=== PATIENT | male | born 1950 | race Caucasian/White ===

== ENCOUNTER → 2018-06-06 | Outpatient (CLI) | payer MEDICARE, OTHER ==
[2018-06-06 11:44] LABS: Appearance,Urine Clear (Clear); Bilirubin,Urine Negative (Negative); Blood,Urine Negative (Negative); Color,Urine Yellow; Glucose,Urine (UA) Negative (Negative); Ketones,Urine Negative (Negative); Leukocyte Esterase,Urine Negative (Negative); Nitrite,Urine Negative (Negative); PH, Urine 6.5 (5.0-8.0); Protein,Urine Negative (Negative); Specific Gravity,Urine 1.012 (1.001-1.035); Urobilinogen,Urine <2.0 mg/dL (<2.0)
[2018-06-06 11:49] LABS: INR 1.1 (<1.2); Partial Thromboplastin Time 23.6 sec (22.0-30.0); Prothrombin Time 10.7 sec (9.0-12.0)
[2018-06-06 11:51] LABS: Basophils # (A) 0.1 k/uL (0-0.2); Basophils % (A) 1 %; Eosinophils # (A) 0.3 k/uL (0-0.7); Eosinophils % (A) 3 %; HCT 46.5 % (39.0-53.0); Lymphocytes # (A) 1.7 k/uL (1.0-4.8); Lymphocytes % (A) 20 %; MCH 32.4 pg (25.0-35.0); MCHC 34.4 g/dL (31.0-37.0); MCV 94.1 fL (80.0-100.0); Monocytes # (A) 0.5 k/uL (0-1.0); Monocytes % (A) 6 %; Neutrophils # (A) 5.9 k/uL (1.3-7.7); Neutrophils % (A) 69 %; Platelet Count 289 k/uL (150-450); RBC 4.95 m/uL (4.30-5.90); RDW 12.9 % (11.5-15.5); WBC 8.5 k/uL (3.8-10.6)
[2018-06-06 11:58] LABS: Calcium 10.1 mg/dL (8.4-10.2); Potassium 4.5 mmol/L (3.5-5.1)
--- NOTE | 2018-06-06 15:21 | XR ---
EXAMINATION TYPE: XR chest 2V DATE OF EXAM: 06/06/2018 COMPARISON: NONE HISTORY: Preop TECHNIQUE: Frontal and lateral views of the chest are obtained. FINDINGS: There is no focal air space opacity, pleural effusion, or pneumothorax seen. The cardiac silhouette size is within normal limits. The osseous structures are intact. IMPRESSION: No acute cardiopulmonary process.
== END ==
LOC: LABPAT 10:35
PROVIDERS: ATTEND Orthopaedic Surgery Orthopaedic Surgery of the Spine
DX: Z01.818 Encounter for other preprocedural examination (principal); M62.81 Muscle weakness (generalized); M99.79 Connective tissue and disc stenosis of intervertebral foramina of abdomen and other regions; Z01.812 Encounter for preprocedural laboratory examination
CPT/HCPCS: 36415; 71046; 80048; 81003; 85025; 85610; 85730

== ENCOUNTER 2018-06-13 11:14 | Day surgery (SDC) | payer MEDICARE, OTHER ==
[~2018-06-13 11:14] MED LIST: BACITRACIN 50,000 UNIT, POLYMYXIN B 500,000 UNIT in SODIUM CHLORIDE 0.9% IRRIGATIO 1,00... IRRIGATION ONE; DEXAMETHASONE SOD PHOSPHATE 10 MG/ML 1 ML VIAL IV ONE; HYDROmorphone 0.5 MG/0.5 ML SYRINGE IVP PRN; LIDOCAINE 1% 20 ML VIAL (10MG/ML) FOR IV START INTRADERMA PRN; MIDAZOLAM 2 MG/2 ML VIAL IV PRN; ONDANSETRON 4 MG/2 ML VIAL IVP ONE; ceFAZolin IN SWFI 2 GM/20 ML SYRINGE IVP ONE; fentaNYL (PF) 50 MCG/ML 2 ML AMP IV PRN
[2018-06-13] MEDS: LACTATED RINGERS 1,000 ML IV SCH ×2 (12:00→20:51)
[2018-06-13] MEDS ORDERED: ePHEDrine SULFATE/0.9% NACL/PF 50 MG/5 ML SYRINGE IV ONE (13:06)
[2018-06-13] MEDS ORDERED: GLYCOPYRROLATE 0.2 MG/ML 2 ML VIAL ONE (13:06)
[2018-06-13] MEDS ORDERED: fentaNYL (PF) 50 MCG/ML 2 ML AMP ONE (13:06)
[2018-06-13] MEDS ORDERED: MIDAZOLAM 2 MG/2 ML VIAL ONE (13:06)
[2018-06-13] MEDS ORDERED: LIDOCAINE 1% INJ 10MG/ML (20 ML MDV) ONE (13:06)
[2018-06-13] MEDS ORDERED: PROPOFOL 10 MG/ML 20 ML VIAL IV ONE (13:06)
[2018-06-13] MEDS ORDERED: ROCURONIUM BROMIDE 10 MG/ML 10 ML VIAL IV ONE (13:06)
[2018-06-13] MEDS ORDERED: SUCCINYLCHOLINE CHLORIDE 100 MG/5 ML SYR IV ONE (13:06)
[2018-06-13] MEDS ORDERED: NEOSTIGMINE 1 MG/ML 10 ML VIAL ONE (13:06)
[2018-06-13] MEDS ORDERED: THROMBIN (BOVINE) 5,000 UNIT VIAL TOPICAL ONE (13:18)
[2018-06-13] MEDS ORDERED: GELATIN SPONGE,ABSORB (LARGE) 1 EACH SPONGE TOPICAL ONE (13:18)
[2018-06-13] MEDS ORDERED: LIDOCAINE 0.5%-EPI 1:200,000 50 ML VIAL SQ ONE (13:18)
[2018-06-13] MEDS ORDERED: methylPREDNISolone ACETATE 40 MG/ML 1 ML VIAL MISCELLANE ONE (13:43)
--- NOTE | 2018-06-13 13:58 | XR ---
Fluoroscopy History: Needle placement 2 sec fluoro . Single paper image demonstrates localization at the L4-5 level.
[2018-06-13] MEDS ORDERED: HYDROmorphone 1 MG/ML 1 ML SYRINGE IVP PRN ×3 (15:05→15:06)
[2018-06-13] MEDS ORDERED: MAGNESIUM HYDROXIDE 2,400 MG/10 ML CUP PO PRN (15:05)
[2018-06-13] MEDS ORDERED: ONDANSETRON 4 MG/2 ML VIAL IVP PRN (15:06)
[2018-06-13] MEDS ORDERED: IBUPROFEN 600 MG TAB PO PRN (15:06)
--- NOTE | 2018-06-13 15:16 | P.OP ---
Date of Procedure: 06/13/18 Preoperative Diagnosis: Far lateral disc herniation L4 5 on the right Right lower extremity radiculopathy over L4 distribution Right lower extremity weakness Degenerative disc disease Postoperative Diagnosis: Same Anesthesia: GETA Pathology: none sent Condition: stable Disposition: PACU Description of Procedure: BRIEF OPERATIVE NOTE Preoperative Diagnosis: Far lateral disc herniation L4 5, right lower extremity radiculopathy right lower extremity weakness, degenerative disc disease Postoperative Diagnosis: Same Procedure: Laminectomy and partial facetectomy and decompression L4 5 Discectomy for decompression L4 5 Surgeon: Dr. Squires Shot Examiner: Trenton Ragsdale is present throughout the entire the case persistence during positioning, dissection, exposure, visualization, and all crucial elements of the case as well as closure. Anesthesia: General anesthesia Estimated blood loss: Approximately 150 mL Complications: None apparent Components implanted: None Disposition: To recovery room in good stable condition. OPERATIVE INDICATIONS The patient has been having issues in their lower back and lower extremities. The patient has been through conservative treatment. He is found have a large far lateral disc herniation at L4 5 which correlated well with his right lower extremity radiculopathy or L4 distribution. Patient is having evidence of weakness and persistent radiculopathy despite initial pain management therapy and conservative care. We discussed various treatment options including surgery , and the patient wishes to proceed with surgery We discussed the risk, patient' s alternatives and benefits of surgery including but not limited to, risk of bleeding risk of infection, risk of need for further surgery, risk of decreased , loss of motion, loss of function, nerve damage, paralysis, heart attack, blindness and . OPERATIVE SUMMARY After discussing all the risks, patient alternatives and benefits at length, the patient elected to proceed with surgical intervention, signed informed consent, and presented for their procedure. The patient was seen and examined in the preoperative holding area and the surgical site was marked. The patient was given antibiotics and brought to the operating room. The patient was sedated and intubated by anesthesia in standard fashion. The patient was positioned on to the operating room table in a prone position on the appropriate frame which was well-padded and well molded. We were careful to pad any bony prominences and pressure points. We were careful to maintain the patient's cervical spine and good neutral alignment and position throughout. The patient was prepped and draped in a normal standard fashion. An appropriate timeout and keystone protocol performed. We were able to proceed with the surgery. Fluoroscopy was utilized to establish the appropriate level. The local wound area was infiltrated with local anesthetic. An incision was made at the right paracentral space approximately 2 cm longitudinally over the appropriate levels at L4 5. Dissection was taken down subcutaneously to the level of the fascia which was split along the fibers of the musculature down to the level of facet joint. Dissection was taken over the lamina and over the facet joints laterally. Intraoperative fluoroscopy was taken which showed a marker at the appropriate level at L4 5. With the appropriate level positively confirmed, we were able to proceed with laminectomy and partial lateral discectomy. The wound was copiously irrigated and suctioned dry as had been done periodically throughout the case. I performed a partial laminectomy and partial facetectomy with a combination of curettes and a high-speed bur and Kerrison rongeurs. A small lateral facetectomy was performed again further access. A partial foraminotomy was also performed. Portions of the ligamentum flavum and the intertransverse ligament were taken down to expose the dura and exiting nerve root. I was able to mobilize the traversing nerve root and gain access to the disc space. Note was made of obvious compression from the disc. Protecting the soft tissue structures, a small annulotomy was established. I was able to perform discectomy and remove any extruded disc fragments and any loose fragments from within the disc itself. There is some disc desiccation noted. I tried to preserve the disc annulus that appeared stable. There were no further extruded fragments noted. There is no evidence of dural tear or leak. Good hemostasis maintained. The wound was copiously irrigated and suctioned dry. Good decompression and discectomy was noted. We were able to proceed with closure. The fascia was closed for a watertight closure. The subcuticular tissue was closed with absorbable suture. The wound was cleaned and dried and dressed with the appropriate dressing. The drapes were broken down. The patient was gently rolled back onto their hospital bed being careful to maintain their cervical spine and good neutral alignment and position. They were woken up by anesthesia, extubated, and brought to the recovery room in good stable condition. The patient will be admitted to the hospital for observation and for appropriate postoperative care, medical management and monitoring. We will continue to follow them closely about the postoperative course.
[2018-06-13] MEDS ORDERED: LACTATED RINGERS 1,000 ML IV ONE (16:48)
[2018-06-13 17:55] VITALS: BMI 25.1
[2018-06-13] MEDS: SODIUM CHLORIDE 0.9% 1,000 ML IV SCH (18:07)
[2018-06-13] MEDS: METOPROLOL TARTRATE 25 MG TAB PO SCH (20:48)
[2018-06-13] MEDS: cloNIDine HCL 0.1 MG TAB PO SCH (20:48)
[2018-06-13] MEDS: HYDROcodone/APAP 5-325MG 1 EACH TAB PO PRN (20:49)
[2018-06-13] MEDS: ceFAZolin IN SWFI 2 GM/20 ML SYRINGE IVP SCH (20:50)
[2018-06-14] MEDS: SODIUM CHLORIDE 0.9% 1,000 ML IV SCH (04:14)
[2018-06-14] MEDS: ceFAZolin IN SWFI 2 GM/20 ML SYRINGE IVP SCH (04:40)
[2018-06-14] MEDS: HYDROcodone/APAP 5-325MG 1 EACH TAB PO PRN ×2 (04:45→09:35)
[2018-06-14 04:52] VITALS: BP 136/81; PULSE 66; RESP 16; TEMP 98.2
[2018-06-14] MEDS: METOPROLOL TARTRATE 25 MG TAB PO SCH (08:38)
[2018-06-14] MEDS: cloNIDine HCL 0.1 MG TAB PO SCH (08:39)
--- NOTE | 2018-06-14 08:50 | P.DS ---
Providers Date of admission: 06/13/2018 Expected date of discharge: 06/14/18 Attending physician: Farzana Squires Primary care physician: Morris Zuñiga - Discharge Diagnosis(es) (1) Lumbar disc herniation with radiculopathy Current Visit: Yes Status: Acute (2) Lumbar degenerative disc disease Current Visit: Yes Status: Acute (3) Hypertension Current Visit: Yes Status: Acute (4) Hyperlipidemia Current Visit: Yes Status: Acute Hospital Course: This is a pleasant 68-year-old male who presented with L4-5 for right lateral disc herniation, right lower extremity radiculopathy over L4 distribution, right lower extremity weakness, and lumbar degenerative disc disease who failed outpatient conservative therapy. He was admitted for an L4-5 right for lateral laminectomy and decompression with discectomy. Postoperatively patient feels he 's had significant improvement of his symptoms. He is not currently experiencing any significant right lower extremity radiculopathy which was present prior to surgical intervention. He has some numbness ongoing and the toes of his right foot. Does not currently complain of significant weakness. He's been eating and voiding without difficulty. He is very happy postoperatively and is ready for discharge home. The patient tolerated the procedure well and did well postoperatively. Condition on day of discharge stable. Patient was cleared preoperatively for surgery by Dr. Zuñiga and Dr. Chamberlain. Patient currently denies any nausea, vomiting, fever, or chills. Patient is eating and voiding freely without difficulty. Patient may shower Tegaderm dressing intact. Patient may remove Tegaderm dressing in 3 days and shower without a dressing at that time. Patient should keep Steri-Strips intact and allow them to fall off naturally. Patient should refrain from driving until at least after their first follow-up appointment in the office. Patient should avoid excessive bending, lifting, and twisting; no lifting greater than 10 pounds. An "Opioid Start Talking" form has been signed by the patient and Dr. Rey Squires. A prescription for [place] 5 mg/325 mg 1-2 tabs every 6 hours as needed for pain dispense #24 has been transcribed to the pharmacy by Dr. Rey Squires. Patient should avoid anti-inflammatories or the next 6 weeks postoperatively. Physical Exam on day of discharge: Patient is awake, alert, and oriented 3 Vital signs stable Good chest excursion with deep inspiration and expiration Abdomen soft nontender No signs or symptoms of DVT; no calf pain Extensor hallucis longus, plantarflexion, and dorsiflexion positive sustained bilateral lower extremities Incision is clean, dry, and intact; no erythema, purulence, or signs of infection Tegaderm dressing and non-stick Telfa intact Procedures: L4-5 right for lateral laminectomy and decompression with discectomy Patient Condition at Discharge: Stable Plan - Discharge Summary New Discharge Prescriptions: New HYDROcodone/APAP 5-325MG [[place] 5-325] 1 - 2 tab PO Q6HR PRN #24 tab PRN Reason: Severe Pain No Action amLODIPine [Norvasc] 10 mg PO DAILY Triamterene-Hctz 37.5-25Mg [Maxzide 37.5-25] 1 tab PO DAILY Metoprolol Tartrate [Lopressor] 25 mg PO BID Candesartan Cilexetil [Atacand] 32 mg PO DAILY Aspirin [Adult Low Dose Aspirin EC] 81 mg PO DAILY cloNIDine HCL [Catapres] 0.1 mg PO BID Omeprazole 20 mg PO DAILY Atorvastatin [Lipitor] 40 mg PO DAILY Discharge Medication List Aspirin [Adult Low Dose Aspirin EC] 81 mg PO DAILY 03/05/16 [History] Atorvastatin [Lipitor] 40 mg PO DAILY 03/05/16 [History] Candesartan Cilexetil [Atacand] 32 mg PO DAILY 03/05/16 [History] Metoprolol Tartrate [Lopressor] 25 mg PO BID 03/05/16 [History] Omeprazole 20 mg PO DAILY 03/05/16 [History] Triamterene-Hctz 37.5-25Mg [Maxzide 37.5-25] 1 tab PO DAILY 03/05/16 [History] amLODIPine [Norvasc] 10 mg PO DAILY 03/05/16 [History] cloNIDine HCL [Catapres] 0.1 mg PO BID 03/05/16 [History] HYDROcodone/APAP 5-325MG [[place] 5-325] 1 - 2 tab PO Q6HR PRN #24 tab 06/13/18 [ Rx] Follow up Appointment(s)/Referral(s): Farzana Squires DO [Doctor of Osteopathic Medicine] - 06/28/18 2:00 pm Patient Instructions/Handouts: *Surgery [facility] - ([place]) Lumbar Surgery Discharge Instructions, Hydrocodone/Acetaminophen (By mouth), Surgical Site Infections (DC ) Activity/Diet/Wound Care/Special Instructions: -Keep site clean. May shower with waterproof Tegaderm intact. -Do not soak in a tub. -After 72 hours is complete, the patient may remove dressing and then may shower with area uncovered. Leave Steri-Strips intact and allow them to fray off on their own. *May ambulate to tolerance. *Avoid heavy or rigorous activity. No heavy lifting *No repetitive bending, twisting or lifting Discharge Disposition: HOME SELF-CARE
[2018-06-14] MEDS ORDERED: ASPIRIN 81 MG PO SCH (09:00)
[2018-06-14] MEDS ORDERED: PANTOPRAZOLE 40 MG TABLET PO SCH (09:00)
[2018-06-14] MEDS ORDERED: ATORVASTATIN 40 MG TAB PO SCH (09:00)
[2018-06-14] MEDS ORDERED: TRIAMTERENE-HCTZ 37.5-25MG 1 EACH TAB PO SCH (09:00)
[2018-06-14] MEDS ORDERED: amLODIPine 10 MG TAB PO SCH (09:00)
[2018-06-14] MEDS ORDERED: SENNOSIDES-DOCUSATE SODIUM 1 EACH TAB PO SCH (09:00)
[2018-06-14] MEDS ORDERED: LOSARTAN 50 MG TAB PO SCH (09:00)
== END 2018-06-14 09:50 | disposition home or self-care (01) ==
LOC: OR 11:14 → 3NMEDONC 14:47 → OR 06-14 09:50
PROVIDERS: ATTEND Orthopaedic Surgery Orthopaedic Surgery of the Spine
DX: M51.16 Intervertebral disc disorders with radiculopathy, lumbar region (principal); M51.17 Intervertebral disc disorders with radiculopathy, lumbosacral region; M48.062 Spinal stenosis, lumbar region with neurogenic claudication; I10 Essential (primary) hypertension; E78.5 Hyperlipidemia, unspecified; K21.9 Gastro-esophageal reflux disease without esophagitis; Z87.891 Personal history of nicotine dependence; N40.0 Benign prostatic hyperplasia without lower urinary tract symptoms; N52.9 Male erectile dysfunction, unspecified; M19.049 Primary osteoarthritis, unspecified hand; M54.5 Low back pain; Z79.82 Long term (current) use of aspirin; Z79.899 Other long term (current) drug therapy; Z79.891 Long term (current) use of opiate analgesic; Z79.52 Long term (current) use of systemic steroids; Z79.1 Long term (current) use of non-steroidal anti-inflammatories (NSAID)
CPT/HCPCS: 63030; 72020; J2250; J1030; J2710; J2405; J2001; J3010; J0330; J2704; J0690 ×2; 86850; 86900; 86901

== ENCOUNTER 2020-02-11 08:41 | Observation (INO) | payer MEDICARE, OTHER ==
[2020-02-11] MEDS ORDERED: LIDOCAINE VISCOUS 2% 15 ML CUP MUCOUS MEM ONE (09:00)
[2020-02-11] MEDS ORDERED: IBUPROFEN 600 MG TAB PO STA (09:01)
--- NOTE | 2020-02-11 09:03 | ED ---
ENT HPI - General Source: patient, RN notes reviewed Mode of arrival: ambulatory Limitations: no limitations <Paco Frederick - Last Filed: 02/11/20 11:07> <Juan Coto - Last Filed: 02/11/20 11:18> - General Chief complaint: ENT Stated complaint: Sore throat, ear pain Time Seen by Provider: 02/11/20 08:48 - History of Present Illness Initial comments: This a 69-year-old male presents emergency Department chief complaint sore throat, left ear pain. Patient states started yesterday. Patient feels like he has strep throat. Patient states it is painful swallowing but he does not have any difficulty and then the discomfort. No fevers or chills patient states that his throat feels swollen. Patient any headache or dizziness. Patient states he has pain areas to his left ear denies any nasal congestion no seasonal ALLERGY issues. Patient denies chest pain, shortness breath, nausea vomiting. (Paco Frederick) - Related Data Home Medications Medication Instructions Recorded Confirmed Aspirin [Adult Low Dose Aspirin EC] 81 mg PO DAILY 03/05/16 06/13/18 Atorvastatin [Lipitor] 40 mg PO DAILY 03/05/16 06/13/18 Candesartan Cilexetil [Atacand] 32 mg PO DAILY 03/05/16 06/08/18 Metoprolol Tartrate [Lopressor] 25 mg PO BID 03/05/16 06/08/18 Omeprazole 20 mg PO DAILY 03/05/16 06/13/18 Triamterene-Hctz 37.5-25Mg 1 tab PO DAILY 03/05/16 06/13/18 [Maxzide 37.5-25] amLODIPine [Norvasc] 10 mg PO DAILY 03/05/16 06/08/18 cloNIDine HCL [Catapres] 0.1 mg PO BID 03/05/16 06/08/18 Previous Rx's Medication Instructions Recorded HYDROcodone/APAP 5-325MG [[place] 1 - 2 tab PO Q6HR PRN #24 tab 06/13/18 5-325] Allergies Allergy/AdvReac Type Severity Reaction Status Date / Time No Known Allergies Allergy Verified 02/11/20 08:47 Review of Systems ROS Other: All systems not noted in ROS Statement are negative. <Paco Frederick - Last Filed: 02/11/20 11:07> ROS Other: All systems not noted in ROS Statement are negative. <Juan Coto - Last Filed: 02/11/20 11:18> ROS Statement: Those systems with pertinent positive or pertinent negative responses have been documented in the HPI. Past Medical History Past Medical History: GERD/Reflux, Hyperlipidemia, Hypertension Additional Past Medical History / Comment(s): HX ULCER, HX H. PYLORI History of Any Multi-Drug Resistant Organisms: None Reported Past Surgical History: Back Surgery, Orthopedic Surgery Additional Past Surgical History / Comment(s): SEVERAL EGD WITH DILATION FOR DYSPHAGIA, KNEE ARTHORSCOPY, SX ON TENDON/FINGER Additional Past Anesthesia/Blood Transfusion Reaction / Comment(s): DIFFICULT INTUBATION, WAS TOLD TO USE "SLIDE SCOPE" Past Psychological History: No Psychological Hx Reported Smoking Status: Former smoker Past Alcohol Use History: Occasional Past Drug Use History: None Reported - Past Family History Mother Family Medical History: Myocardial Infarction ([place]) Father Family Medical History: Congestive Heart Failure (CHF) <Paco Frederick - Last Filed: 02/11/20 11:07> General Exam Limitations: no limitations General appearance: alert, in no apparent distress Head exam: Present: atraumatic, normocephalic, normal inspection Eye exam: Present: normal appearance, PERRL, EOMI. Absent: scleral icterus, conjunctival injection, periorbital swelling ENT exam: Present: mucous membranes moist, TM's normal bilaterally. Absent: normal oropharynx (Erythema posterior pharynx, mild swelling equal bilaterally swallowing secretions well), normal external ear exam (Mild cerumen noted) Neck exam: Present: normal inspection, tenderness (Left anterior cervical region), full ROM, lymphadenopathy. Absent: meningismus Respiratory exam: Present: normal lung sounds bilaterally. Absent: respiratory distress, wheezes, rales, rhonchi, stridor Cardiovascular Exam: Present: regular rate, normal rhythm, normal heart sounds. Absent: systolic murmur, diastolic murmur, rubs, gallop, clicks Neurological exam: Present: alert, oriented X3, CN II-XII intact Skin exam: Present: warm, dry, intact, normal color. Absent: rash <Paco Frederick - Last Filed: 02/11/20 11:07> Course <Juan Coto - Last Filed: 02/11/20 11:18> Vital Signs 06/21/20 08:45 Temperature 98.9 F Pulse Rate 97 Respiratory 18 Rate Blood Pressure 166/99 O2 Sat by Pulse 95 Oximetry - Reevaluation(s) Reevaluation #1: 02/11/20 11:17 PA supervision: I proceeded evaluate this patient patient presents with compl aints of sore throat and left ear pain. The workup revealed evidence of mild epiglottitis. Patient be admitted Dr. Blanco will be the main physician (Juan Coto) Medical Decision Making - Lab Data Result diagrams: 02/11/20 09:52 02/11/20 09:52 <Paco Frederick - Last Filed: 02/11/20 11:07> - Lab Data Result diagrams: 02/11/20 09:52 02/11/20 09:52 <Juan Coto - Last Filed: 02/11/20 11:18> - Medical Decision Making 69-year-old male present emergency from for sore throat. X-ray and radiologist concern for possible mild hepatitis. Patient is in no signs of distress. Patient was placed on Rocephin, Decadron. Patient will be admitted for observation and further management at this point. (Paco Frederick) - Lab Data Lab Results 02/11/20 02/11/20 02/11/20 Range/Units 09:10 09:52 09:52 WBC 19.9 H (3.8-10.6) k/uL RBC 4.92 (4.30-5.90) m/uL Hgb 15.5 (13.0-17.5) gm/dL Hct 46.3 (39.0-53.0) % MCV 94.3 (80.0-100.0) fL MCH 31.5 (25.0-35.0) pg MCHC 33.4 (31.0-37.0) g/dL RDW 12.3 (11.5-15.5) % Plt Count 249 (150-450) k/uL Neutrophils % 91 % Lymphocytes % 3 % Monocytes % 4 % Eosinophils % 1 % Basophils % 0 % Neutrophils # 18.1 H (1.3-7.7) k/uL Lymphocytes # 0.6 L (1.0-4.8) k/uL Monocytes # 0.8 (0-1.0) k/uL Eosinophils # 0.2 (0-0.7) k/uL Basophils # 0.0 (0-0.2) k/uL Sodium 135 L (137-145) mmol/L Potassium 3.9 (3.5-5.1) mmol/L Chloride 101 (98-107) mmol/L Carbon Dioxide 24 (22-30) mmol/L Anion Gap 10 mmol/L BUN 11 (9-20) mg/dL Creatinine 0.94 (0.66-1.25) mg/dL Est GFR (CKD-EPI)AfAm >90 (>60 ml/min/1.73 sqM) Est GFR (CKD-EPI)NonAf 83 (>60 ml/min/1.73 sqM) Glucose 149 H (74-99) mg/dL Plasma Lactic Acid Tate (0.7-2.0) mmol/L Calcium 9.8 (8.4-10.2) mg/dL Total Bilirubin 1.0 (0.2-1.3) mg/dL AST 21 (17-59) U/L ALT 21 (4-49) U/L Alkaline Phosphatase 124 (38-126) U/L Total Protein 7.3 (6.3-8.2) g/dL Albumin 4.3 (3.5-5.0) g/dL Group A Strep Rapid Negative (Negative) 02/11/20 Range/Units 09:52 WBC (3.8-10.6) k/uL RBC (4.30-5.90) m/uL Hgb (13.0-17.5) gm/dL Hct (39.0-53.0) % MCV (80.0-100.0) fL MCH (25.0-35.0) pg MCHC (31.0-37.0) g/dL RDW (11.5-15.5) % Plt Count (150-450) k/uL Neutrophils % % Lymphocytes % % Monocytes % % Eosinophils % % Basophils % % Neutrophils # (1.3-7.7) k/uL Lymphocytes # (1.0-4.8) k/uL Monocytes # (0-1.0) k/uL Eosinophils # (0-0.7) k/uL Basophils # (0-0.2) k/uL Sodium (137-145) mmol/L Potassium (3.5-5.1) mmol/L Chloride (98-107) mmol/L Carbon Dioxide (22-30) mmol/L Anion Gap mmol/L BUN (9-20) mg/dL Creatinine (0.66-1.25) mg/dL Est GFR (CKD-EPI)AfAm (>60 ml/min/1.73 sqM) Est GFR (CKD-EPI)NonAf (>60 ml/min/1.73 sqM) Glucose (74-99) mg/dL Plasma Lactic Acid Tate 1.5 (0.7-2.0) mmol/L Calcium (8.4-10.2) mg/dL Total Bilirubin (0.2-1.3) mg/dL AST (17-59) U/L ALT (4-49) U/L Alkaline Phosphatase (38-126) U/L Total Protein (6.3-8.2) g/dL Albumin (3.5-5.0) g/dL Group A Strep Rapid (Negative) Disposition <Paco Frederick - Last Filed: 02/11/20 11:07> <Juan Coto - Last Filed: 02/11/20 11:18> Clinical Impression: Epiglottitis Disposition: ADMITTED IP TO THIS HOSP Condition: Fair Referrals: Morris Zuñiga MD [Primary Care Provider] - 1-2 days
[2020-02-11] MEDS ORDERED: DEXAMETHASONE SOD PHOSPHATE 10 MG/ML 1 ML VIAL IV STA (09:25)
--- NOTE | 2020-02-11 09:26 | XR ---
EXAMINATION TYPE: XR soft tissue neck , 2 VIEWS DATE OF EXAM ORDERED: 02/11/2020 HISTORY: Dysphagia. COMPARISON: None. FINDINGS: The epiglottis is mildly swollen. The remainder of the airway is unremarkable. IMPRESSION: MILD SWELLING IN THE EPIGLOTTIS. THIS REPORT WAS PHONED TO DAVID ABEL IN THE ER AT THE TIME OF REPORTING.
[2020-02-11 10:15] LABS: Basophils % (A) 0 %; Eosinophils # (A) 0.2 k/uL (0-0.7); Eosinophils % (A) 1 %; HCT 46.3 % (39.0-53.0); HGB 15.5 gm/dL (13.0-17.5); Lymphocytes # (A) 0.6 k/uL (1.0-4.8); Lymphocytes % (A) 3 %; MCH 31.5 pg (25.0-35.0); MCHC 33.4 g/dL (31.0-37.0); MCV 94.3 fL (80.0-100.0); Mean Platelet Volume 7.6; Monocytes # (A) 0.8 k/uL (0-1.0); Monocytes % (A) 4 %; Neutrophils # (A) 18.1 k/uL (1.3-7.7); Neutrophils % (A) 91 %; Platelet Count 249 k/uL (150-450); RBC 4.92 m/uL (4.30-5.90); RDW 12.3 % (11.5-15.5); WBC 19.9 k/uL (3.8-10.6)
[2020-02-11 10:24] LABS: ALT 21 U/L (4-49); AST 21 U/L (17-59); African American GFR (CKD) >90 (>60 ml/min/1.73 sqM); Albumin 4.3 g/dL (3.5-5.0); Alkaline Phosphatase 124 U/L (38-126); Anion Gap 10 mmol/L; Blood Urea Nitrogen 11 mg/dL (9-20); Calcium 9.8 mg/dL (8.4-10.2); Carbon Dioxide 24 mmol/L (22-30); Chloride 101 mmol/L (98-107); Glucose 149 mg/dL (74-99); Non-African American GFR(CKD) 83 (>60 ml/min/1.73 sqM); Potassium 3.9 mmol/L (3.5-5.1); Sodium 135 mmol/L (137-145); Total Protein 7.3 g/dL (6.3-8.2)
[2020-02-11] MEDS ORDERED: NALOXONE 0.4 MG/ML 1 ML VIAL IV PRN ×2 (11:08→12:10)
[2020-02-11] MEDS ORDERED: ONDANSETRON 4 MG/2 ML VIAL IVP PRN (11:08)
[2020-02-11] MEDS ORDERED: KETOROLAC 30 MG/ML 1 ML VIAL IVP PRN ×2 (11:08→11:12)
[2020-02-11] MEDS: SODIUM CHLORIDE 0.9% 1,000 ML IV SCH (11:41)
[2020-02-11] MEDS ORDERED: hydrOXYzine HCL 25 MG TAB PO PRN (12:12)
--- NOTE | 2020-02-11 12:22 | P.HPIM ---
History of Present Illness H&P Date: 02/11/20 Chief Complaint: sore throat 69-year-old male presents to the emergency Department with chief complaint of sore throat, left ear pain, nausea and vomiting. Symptoms started yesterday. Patient has also been having significant dysphagia with painful swallowing. He has not taken anything by mouth since yesterday's lunch. No hearing loss, today ear pain has resolved. No difficulty breathing. No fevers or chills. No headache or dizziness. No sick contacts. In the emergency department computed tomography scan of the neck showed mild swelling in the epiglottis. He was given some steroids and antibiotics and was admitted for further evaluation and management. Review of Systems Complete review of system performed, pertinent positives per HPI, otherwise negative Past Medical History Past Medical History: GERD/Reflux, Hyperlipidemia, Hypertension Additional Past Medical History / Comment(s): HX ULCER, HX H. PYLORI History of Any Multi-Drug Resistant Organisms: None Reported Past Surgical History: Back Surgery, Orthopedic Surgery Additional Past Surgical History / Comment(s): SEVERAL EGD WITH DILATION FOR DYSPHAGIA, KNEE ARTHORSCOPY, SX ON TENDON/FINGER Additional Past Anesthesia/Blood Transfusion Reaction / Comment(s): DIFFICULT INTUBATION, WAS TOLD TO USE "SLIDE SCOPE" Past Psychological History: No Psychological Hx Reported Smoking Status: Former smoker Past Alcohol Use History: Occasional Past Drug Use History: None Reported - Past Family History Mother Family Medical History: Myocardial Infarction ([place]) Father Family Medical History: Congestive Heart Failure (CHF) Medications and Allergies Home Medications Medication Instructions Recorded Confirmed Type Aspirin [Adult Low Dose Aspirin EC] 81 mg PO DAILY 03/05/16 02/11/20 History Atorvastatin [Lipitor] 40 mg PO DAILY 03/05/16 02/11/20 History Candesartan Cilexetil [Atacand] 32 mg PO DAILY 03/05/16 02/11/20 History Metoprolol Tartrate [Lopressor] 25 mg PO BID 03/05/16 02/11/20 History Omeprazole 20 mg PO DAILY 03/05/16 02/11/20 History Triamterene-Hctz 37.5-25Mg 1 tab PO DAILY 03/05/16 02/11/20 History [Maxzide 37.5-25] amLODIPine [Norvasc] 10 mg PO DAILY 07/14/16 06/21/20 History cloNIDine HCL [Catapres] 0.1 mg PO BID 03/05/16 02/11/20 History Clobetasol Propionate [[place] 1 applic TOPICAL BID PRN 02/11/20 02/11/20 History 0.25%] hydrOXYzine HCL [Atarax] 25 mg PO HS PRN 02/11/20 02/11/20 History Allergies Allergy/AdvReac Type Severity Reaction Status Date / Time No Known Allergies Allergy Verified 02/11/20 11:39 Physical Exam Vitals: Vital Signs Temp Pulse Resp BP Pulse Ox 02/11/20 08:45 98.9 F 97 18 166/99 95 Intake and Output 02/10/20 02/11/20 02/11/20 22:59 06:59 14:59 Other: Weight 84.822 kg Constitutional: No acute distress, conversant, pleasant Eyes:Anicteric sclerae, moist conjunctiva, no lid-lag, PERRLA, ENMT: Oropharynx clear, no erythema, exudates Neck: Supple, FROM, no masses, or JVD, No carotid bruits, No thyromegaly Lungs: Clear to auscultation, Clear to percussion, Normal respiratory effort, no accessory muscle use Cardiovascular: Heart regular in rate and rhythm, No murmurs, gallops, or rubs, No peripheral edema Abdominal: Soft, Nontender, no guarding, rebound or rigidity, Normoactive bowel sounds, No hepatomegaly, No splenomegaly, No palpable mass Skin: Normal temperature, tone, texture, turgor, no induration, No subcutaneous nodules, No rash, lesions, No ulcers Extremities: No digital cyanosis, No clubbing, Pedal pulses intact and symmetrical, Radial pulses intact and symmetrical, No calf tenderness Psychiatric: Alert and oriented to person, place and time, appropriate affect, intact judgement Neuro: Muscles Strength 5/5 in all 4 extremities, Sensation to light touch grossly present throughout, Cranial nerves II-XII grossly intact, no focal sensory deficits Results CBC & Chem 7: 02/11/20 09:52 02/11/20 09:52 Labs: Abnormal Lab Results - Last 24 Hours (Table) 02/11/20 02/11/20 Range/Units 09:52 09:52 WBC 19.9 H (3.8-10.6) k/uL Neutrophils # 18.1 H (1.3-7.7) k/uL Lymphocytes # 0.6 L (1.0-4.8) k/uL Sodium 135 L (137-145) mmol/L Glucose 149 H (74-99) mg/dL Assessment and Plan Plan: Epiglottis Start ceftriaxone and decadron IV fluids Toradol and zofran prn Chronic problems Hypertension, essential Hyperlipidemia Stable Resume meds Patient admitted to observation, expected length of stay less than 2 midnights
[2020-02-11] MEDS: ASPIRIN 81 MG PO SCH (13:44)
[2020-02-11] MEDS: ATORVASTATIN 40 MG TAB PO SCH (13:44)
[2020-02-11] MEDS: TRIAMTERENE-HCTZ 37.5-25MG 1 EACH TAB PO SCH (13:44)
[2020-02-11] MEDS: amLODIPine 10 MG TAB PO SCH (13:44)
[2020-02-11] MEDS: DEXAMETHASONE SOD PHOSPHATE 4 MG/ML 1 ML VIAL IV SCH (16:06)
[2020-02-11 19:34] VITALS: RESP 16
[2020-02-11] MEDS: METOPROLOL TARTRATE 25 MG TAB PO SCH (20:56)
[2020-02-11] MEDS: cloNIDine HCL 0.1 MG TAB PO SCH (20:56)
[2020-02-12] MEDS: DEXAMETHASONE SOD PHOSPHATE 4 MG/ML 1 ML VIAL IV SCH ×2 (00:43→10:31)
[2020-02-12] MEDS: SODIUM CHLORIDE 0.9% 1,000 ML IV SCH (00:45)
[2020-02-12 06:06] LABS: Basophils % (A) 0 %; Eosinophils # (A) 0.1 k/uL (0-0.7); Eosinophils % (A) 0 %; HCT 43.2 % (39.0-53.0); HGB 14.3 gm/dL (13.0-17.5); Lymphocytes # (A) 0.7 k/uL (1.0-4.8); Lymphocytes % (A) 5 %; MCH 31.7 pg (25.0-35.0); MCHC 33.1 g/dL (31.0-37.0); MCV 95.8 fL (80.0-100.0); Mean Platelet Volume 7.5; Monocytes # (A) 0.5 k/uL (0-1.0); Monocytes % (A) 3 %; Neutrophils # (A) 14.3 k/uL (1.3-7.7); Neutrophils % (A) 92 %; Platelet Count 215 k/uL (150-450); RBC 4.51 m/uL (4.30-5.90); RDW 12.3 % (11.5-15.5); WBC 15.6 k/uL (3.8-10.6)
[2020-02-12 06:21] LABS: ALT 17 U/L (4-49); AST 18 U/L (17-59); African American GFR (CKD) >90 (>60 ml/min/1.73 sqM); Albumin 3.5 g/dL (3.5-5.0); Alkaline Phosphatase 88 U/L (38-126); Anion Gap 7 mmol/L; Blood Urea Nitrogen 18 mg/dL (9-20); Carbon Dioxide 23 mmol/L (22-30); Chloride 107 mmol/L (98-107); Glucose 148 mg/dL (74-99); Magnesium 1.7 mg/dL (1.6-2.3); Non-African American GFR(CKD) 85 (>60 ml/min/1.73 sqM); Phosphorus 2.9 mg/dL (2.5-4.5); Potassium 4.1 mmol/L (3.5-5.1); Sodium 137 mmol/L (137-145); Total Bilirubin 0.5 mg/dL (0.2-1.3); Total Protein 6.4 g/dL (6.3-8.2)
[2020-02-12] MEDS ORDERED: PANTOPRAZOLE 40 MG TABLET PO SCH (07:30)
[2020-02-12 09:00] VITALS: BP 142/82; PULSE 80; TEMP 96.2
[2020-02-12] MEDS ORDERED: TRIAMTERENE-HCTZ 37.5-25MG 1 EACH TAB PO SCH (09:00)
[2020-02-12] MEDS ORDERED: ASPIRIN 81 MG PO SCH (09:00)
[2020-02-12] MEDS ORDERED: ATORVASTATIN 40 MG TAB PO SCH (09:00)
[2020-02-12] MEDS ORDERED: amLODIPine 10 MG TAB PO SCH (09:00)
[2020-02-12] MEDS: cloNIDine HCL 0.1 MG TAB PO SCH (09:05)
[2020-02-12] MEDS: METOPROLOL TARTRATE 25 MG TAB PO SCH (09:05)
[2020-02-12] MEDS: ATORVASTATIN 40 MG TAB PO SCH (09:05)
[2020-02-12] MEDS: ASPIRIN 81 MG PO SCH (09:05)
[2020-02-12] MEDS: amLODIPine 10 MG TAB PO SCH (09:05)
[2020-02-12] MEDS: TRIAMTERENE-HCTZ 37.5-25MG 1 EACH TAB PO SCH (09:05)
--- NOTE | 2020-02-12 09:20 | P.DS ---
Providers Date of admission: 02/11/20 11:17 Expected date of discharge: 02/12/20 Attending physician: Madhuri Blanco MD Primary care physician: [facility] Course: 69-year-old male presents to the emergency Department with chief complaint of sore throat, left ear pain, nausea and vomiting. Symptoms started yesterday. Patient has also been having significant dysphagia with painful swallowing. He has not taken anything by mouth since yesterday's lunch. No hearing loss, today ear pain has resolved. No difficulty breathing. No fevers or chills. No headache or dizziness. No sick contacts. In the emergency department computed tomography scan of the neck showed mild swelling in the epiglottis. He was given some steroids and antibiotics and was admitted for further evaluation and management. Patient was started on IV decadron and rocephin. Throat exam did not reveal any swelling in the tonsils or the back of the tongue. No exudates or purulent discharge noted. Rapid strept test was negative. Strept cx pending at this time. Clinically patient has been doing well, he has been able to swallow food without difficulties, no sob noted. Today he is feeling much better, will be sent home in a stable condition. Patient Condition at Discharge: Fair Plan - Discharge Summary Discharge Rx Participant: No New Discharge Prescriptions: New methylPREDNISolone Dose Pack [Medrol Dose Pack] 4 mg PO DIRECTED #21 package Cefdinir [Omnicef] 300 mg PO Q12HR 5 Days #10 capsule Continue amLODIPine [Norvasc] 10 mg PO DAILY Triamterene-Hctz 37.5-25Mg [Maxzide 37.5-25] 1 tab PO DAILY Metoprolol Tartrate [Lopressor] 25 mg PO BID Candesartan Cilexetil [Atacand] 32 mg PO DAILY Aspirin [Adult Low Dose Aspirin EC] 81 mg PO DAILY cloNIDine HCL [Catapres] 0.1 mg PO BID Omeprazole 20 mg PO DAILY Atorvastatin [Lipitor] 40 mg PO DAILY hydrOXYzine HCL [Atarax] 25 mg PO HS PRN PRN Reason: Itching Clobetasol Propionate [Impoyz 0.25%] 1 applic TOPICAL BID PRN PRN Reason: inflammation/itching Discharge Medication List Aspirin [Adult Low Dose Aspirin EC] 81 mg PO DAILY 03/05/16 [History] Atorvastatin [Lipitor] 40 mg PO DAILY 03/05/16 [History] Candesartan Cilexetil [Atacand] 32 mg PO DAILY 03/05/16 [History] Metoprolol Tartrate [Lopressor] 25 mg PO BID 03/05/16 [History] Omeprazole 20 mg PO DAILY 03/05/16 [History] Triamterene-Hctz 37.5-25Mg [Maxzide 37.5-25] 1 tab PO DAILY 03/05/16 [History] amLODIPine [Norvasc] 10 mg PO DAILY 03/05/16 [History] cloNIDine HCL [Catapres] 0.1 mg PO BID 03/05/16 [History] Clobetasol Propionate [Impoyz 0.25%] 1 applic TOPICAL BID PRN 02/11/20 [History] hydrOXYzine HCL [Atarax] 25 mg PO HS PRN 02/11/20 [History] Cefdinir [Omnicef] 300 mg PO Q12HR 5 Days #10 capsule 02/12/20 [Rx] methylPREDNISolone Dose Pack [Medrol Dose Pack] 4 mg PO DIRECTED #21 package 02/12/20 [Rx] Follow up Appointment(s)/Referral(s): Morris Zuñiga MD [Primary Care Provider] - 1-2 days
== END 2020-02-12 11:21 | disposition home or self-care (01) ==
LOC: EC 08:41 → 1SOBS 11:17
PROVIDERS: ADMIT Internal Medicine; ATTEND Internal Medicine
DX: J05.10 Acute epiglottitis without obstruction (principal); H92.02 Otalgia, left ear; R11.2 Nausea with vomiting, unspecified; I10 Essential (primary) hypertension; E78.5 Hyperlipidemia, unspecified; K21.9 Gastro-esophageal reflux disease without esophagitis; Z87.11 Personal history of peptic ulcer disease; L29.9 Pruritus, unspecified; L08.9 Local infection of the skin and subcutaneous tissue, unspecified; Z79.899 Other long term (current) drug therapy; Z79.82 Long term (current) use of aspirin; Z87.891 Personal history of nicotine dependence; Z82.49 Family history of ischemic heart disease and other diseases of the circulatory system; Z20.828 Contact with and (suspected) exposure to other viral communicable diseases
CPT/HCPCS: 96376 ×2; 96365; 96375; 99284; 36415; 80053 ×2; 83605; 83735; 84100; 85025 ×2; 87040; 87081; 87430; 70360; G0378 ×2; U0003; J1100 ×3; J0696

== ENCOUNTER → 2020-10-17 | Outpatient (CLI) | payer MEDICARE, OTHER ==
--- NOTE | 2020-10-17 11:43 | XR ---
EXAMINATION TYPE: XR Hip Complete LT DATE OF EXAM: 10/17/2020 CLINICAL HISTORY: pain TECHNIQUE: AP and frogleg views of the left hip are obtained. COMPARISON: None. FINDINGS: There is no acute fracture/dislocation evident. The joint space appears mildly to modera tely narrowed with subchondral cystic change noted.. The overlying soft tissue appears unremarkable. IMPRESSION: 1. There is no acute fracture or dislocation.ICD 10 NO FRACTURE, INITIAL EVALUATION
--- NOTE | 2020-10-17 11:50 | XR ---
EXAMINATION TYPE: XR lumbar spine 2 or 3V DATE OF EXAM: 10/17/2020 CLINICAL HISTORY: pain TECHNIQUE: Three views of the lumbar spine are submitted. COMPARISON: None. FINDINGS: There are 5 lumbar type vertebral bodies identified. The lumbar spine shows satisfactory alignment w ithout evidence of acute fracture or dislocation. Vertebral body heights are within normal limits. Severe degenerative disc space narrowing L5-S1 with mild narrowing at the remaining level. The overly ing soft tissue appears unremarkable. IMPRESSION: No acute fracture or dislocation is seen in the lumbar spine. ICD 10 NO FRACTURE, INITIAL EVALUATION
== END | disposition home or self-care (01) ==
LOC: RADXRMAIN 10:40
PROVIDERS: ATTEND Internal Medicine
DX: M54.42 Lumbago with sciatica, left side (principal)
CPT/HCPCS: 72100; 73502

== ENCOUNTER 2020-10-20 10:38 | Emergency (ER) | payer MEDICARE, OTHER ==
[2020-10-20 10:42] VITALS: BP 154/92; RESP 20; TEMP 98.8
[2020-10-20] MEDS ORDERED: KETOROLAC 15 MG/ML 1 ML VIAL IM STA (11:08)
--- NOTE | 2020-10-20 11:30 | ED ---
General Adult HPI - General Chief complaint: Back Pain/Injury Stated complaint: back/leg/groin pain Time Seen by Provider: 10/20/20 10:48 Source: patient Mode of arrival: ambulatory Limitations: no limitations - History of Present Illness Initial comments: 70-year-old male with a past medical history of GERD, hyperlipidemia, hypertension presents to the emergency room for a chief complaint of back pain. Patient states about 2 weeks ago he started to have low back pains. States that it feels better when he is sitting down. However when he is walking the pain worsens and then radiates down to his left leg. He denies any radiating pain to his right leg. He denies any weakness of his legs but states it is painful to walk. Patient denies any bladder or bowel changes, saddle anesthesia, fevers or chills. Patient does state that he saw his primary care provider who did x-rays and started patient on a muscle relaxer. States this does not seem to be helping.Patient has no other complaints at this time including shortness of breath, chest pain, abdominal pain, nausea or vomiting, headache, or visual changes. - Related Data Home Medications Medication Instructions Recorded Confirmed Aspirin [Adult Low Dose Aspirin EC] 81 mg PO DAILY 03/05/16 02/11/20 Atorvastatin [Lipitor] 40 mg PO DAILY 03/05/16 02/11/20 Candesartan Cilexetil [Atacand] 32 mg PO DAILY 03/05/16 02/11/20 Metoprolol Tartrate [Lopressor] 25 mg PO BID 03/05/16 02/11/20 Omeprazole 20 mg PO DAILY 03/05/16 02/11/20 Triamterene-Hctz 37.5-25Mg 1 tab PO DAILY 03/05/16 02/11/20 [Maxzide 37.5-25] amLODIPine [Norvasc] 10 mg PO DAILY 03/05/16 02/11/20 cloNIDine HCL [Catapres] 0.1 mg PO BID 03/05/16 02/11/20 Clobetasol Propionate [Impoyz 1 applic TOPICAL BID PRN 02/11/20 02/11/20 0.25%] hydrOXYzine HCL [Atarax] 25 mg PO HS PRN 02/11/20 02/11/20 Previous Rx's Medication Instructions Recorded Cefdinir [Omnicef] 300 mg PO Q12HR 5 Days #10 capsule 02/12/20 methylPREDNISolone Dose Pack 4 mg PO DIRECTED #21 package 02/12/20 [Medrol Dose Pack] predniSONE 50 mg PO DAILY #4 tablet 10/20/20 Allergies Allergy/AdvReac Type Severity Reaction Status Date / Time No Known Allergies Allergy Verified 10/20/20 10:41 Review of Systems ROS Statement: Those systems with pertinent positive or pertinent negative responses have been documented in the HPI. ROS Other: All systems not noted in ROS Statement are negative. Past Medical History Past Medical History: GERD/Reflux, Hyperlipidemia, Hypertension Additional Past Medical History / Comment(s): HX ULCER, HX H. PYLORI History of Any Multi-Drug Resistant Organisms: None Reported Past Surgical History: Back Surgery, Orthopedic Surgery Additional Past Surgical History / Comment(s): SEVERAL EGD WITH DILATION FOR DYSPHAGIA 2014, KNEE ARTHORSCOPY, SX ON TENDON/FINGER Additional Past Anesthesia/Blood Transfusion Reaction / Comment(s): DIFFICULT INTUBATION, WAS TOLD TO USE "SLIDE SCOPE" Past Psychological History: No Psychological Hx Reported Smoking Status: Never smoker Past Alcohol Use History: Occasional Past Drug Use History: None Reported - Past Family History Mother Family Medical History: Myocardial Infarction ([place]) Father Family Medical History: Congestive Heart Failure (CHF) General Exam Limitations: no limitations General appearance: alert, in no apparent distress Head exam: Present: atraumatic, normocephalic, normal inspection Eye exam: Present: normal appearance, PERRL, EOMI. Absent: scleral icterus, conjunctival injection, periorbital swelling ENT exam: Present: normal exam, mucous membranes moist Neck exam: Present: normal inspection, full ROM. Absent: tenderness, meningismus, lymphadenopathy Respiratory exam: Present: normal lung sounds bilaterally. Absent: respiratory distress, wheezes, rales, rhonchi, stridor Cardiovascular Exam: Present: regular rate, normal rhythm, normal heart sounds. Absent: systolic murmur, diastolic murmur, rubs, gallop, clicks GI/Abdominal exam: Present: soft, normal bowel sounds. Absent: distended, tenderness, guarding, rebound, rigid Extremities exam: Present: normal capillary refill (cap Refill less than 2 seconds in the reaction is bilaterally. PT pulses strong on Doppler bilaterally), other (snesation intact BLE) Back exam: Absent: CVA tenderness (R), CVA tenderness (L) Course Vital Signs 10/20/20 10/20/20 10:40 12:16 Temperature 98.8 F Pulse Rate 118 H 92 Respiratory 20 Rate Blood Pressure 154/92 O2 Sat by Pulse 99 95 Oximetry Medical Decision Making - Medical Decision Making Vitals are stable. Patient initially tachycardic likely secondary to pain which did improve throughout his stay. No red flag symptoms. Physical exam as documented. Neurovascular status intact in the lower extremities. CT lumbar spine did show multilevel degenerative changes greatest in the mid to lower lumbar spine, recommend MRI. Patient does have several disc bulges. This is likely causing radicular symptoms in the left leg. Patient does feel better after Toradol. We will start patient on steroid and he will take Tylenol or Tylenol 3. He will not drive and is aware this could make him drowsy. He should return for any other worsening symptoms and otherwise follow-up with Dr. Squires who he is familiar. Disposition Clinical Impression: Lumbar disc herniation with radiculopathy, Lumbar degenerative disc disease Disposition: HOME SELF-CARE Condition: Good Instructions (If sedation given, give patient instructions): Acute Low Back Pain (ED) Additional Instructions: Please take Tylenol for pain. If pain is severe take Tylenol [address] or operate machinery while taking this. Take steroid as directed. You were given a dose in the ER so do not start your prescription until tomorrow. Follow up with Dr. Squires. Return to the emergency room for any worsening symptoms such as bladder or bowel changes, numbness or tingling in the groin or buttock, weakness of the legs, or fevers. Prescriptions: predniSONE 50 mg PO DAILY #4 tablet Is patient prescribed a controlled substance at d/c from ED?: No Referrals: Laura Walters NPC [Primary Care Provider] - 1-2 days Farzana Squires DO [Doctor of Osteopathic Medicine] - 1-2 days Time of Disposition: 12:44
--- NOTE | 2020-10-20 12:01 | CT ---
EXAMINATION TYPE: CT lumbar spine wo con DATE OF EXAM: 10/20/2020 11:30 AM COMPARISON: Lumbar spine x-ray 3 days ago. HISTORY: Muscle spasm and cramping, left groin pain for 2 weeks after walking a distance. Back pain. CT DLP: 981.1 mGycm Automated exposure control for dose reduction was used. Unenhanced CT of the lumbar spine was performed. Bone and soft tissue window settings are submitted as well as coronal and sagittal reconstructions. There are 5 lumbar type vertebra redemonstrated. Alignment stable and satisfactory. Severe disc space narrowing with endplate sclerosis and mild to moderate anterior spurring L5-S1 level redemonstrated. Vertebral body heights maintained. No acute fracture seen. Axial images at T12-L1 level within normal limits. Axial images at L1-L2 level show mild broad disc bulge with prominent right lateral L1-L2 spur. Axial images at L2-L3 level mild broad disc bulge minimally effacing the anterior thecal sac. Axial images at L3-L4 level show moderate broad-based posterior disc protrusion effacing anterior the sade sac and mild facet arthropathy bilaterally and axial image 45, there is mild right and moderate l eft-sided inferior neural foraminal narrowing. Axial images at L4-L5 level shows moderate facet degenerative changes bilaterally and ligamentum flav um hypertrophy effacing posterior lateral thecal sac. There is moderate broad-based posterior disc pr otrusion effacing the anterior thecal sac on axial image 58. There is [id number] bilateral neur al foraminal narrowing. Axial images at the L5-S1 level shows moderate facet arthropathy bilaterally. There is left paracentr al disc protrusion effacing anterolateral thecal sac and maximum image 67. There is [id number] left greater than right bilateral neural foraminal narrowing. Moderate to severe calcified plaque of the distal abdominal aorta extends into iliac branch vessels. Cortical thinning both kidneys consistent with product of chronic medical renal disease. IMPRESSION: Multilevel degenerative changes greatest in the mid to lower lumbar spine as detailed ab ove. Patient may benefit with MRI to better evaluate. No acute findings evident.
[2020-10-20 12:18] VITALS: PULSE 92
[2020-10-20] MEDS ORDERED: ACET/COD 300 MG/30 MG STARTER PACK 6 TAB BTL PO STA (12:41)
[2020-10-20] MEDS ORDERED: predniSONE 50 MG TAB PO STA (12:41)
== END 2020-10-20 13:00 | disposition home or self-care (01) ==
LOC: EC 10:38
DX: M47.26 Other spondylosis with radiculopathy, lumbar region (principal); M51.16 Intervertebral disc disorders with radiculopathy, lumbar region; I10 Essential (primary) hypertension; E78.5 Hyperlipidemia, unspecified; K21.9 Gastro-esophageal reflux disease without esophagitis; Z79.899 Other long term (current) drug therapy; Z79.82 Long term (current) use of aspirin
CPT/HCPCS: 72131; 99283; 96372; J1885; J7512

== ENCOUNTER → 2020-11-22 | Outpatient (CLI) | payer MEDICARE, OTHER ==
[2020-11-22 10:23] LABS: Appearance,Urine Clear (Clear); Bilirubin,Urine Negative (Negative); Blood,Urine Negative (Negative); Color,Urine Yellow; Glucose,Urine (UA) Negative (Negative); Ketones,Urine Negative (Negative); Leukocyte Esterase,Urine Negative (Negative); Nitrite,Urine Negative (Negative); Protein,Urine Trace (Negative); Specific Gravity,Urine 1.017 (1.001-1.035)
[2020-11-22 10:24] LABS: Basophils # (A) 0.1 k/uL (0-0.2); Basophils % (A) 1 %; Eosinophils # (A) 0.3 k/uL (0-0.7); Eosinophils % (A) 4 %; HCT 42.9 % (39.0-53.0); HGB 15.1 gm/dL (13.0-17.5); Lymphocytes # (A) 1.5 k/uL (1.0-4.8); Lymphocytes % (A) 19 %; MCH 32.7 pg (25.0-35.0); MCHC 35.1 g/dL (31.0-37.0); MCV 93.1 fL (80.0-100.0); Mean Platelet Volume 6.8; Monocytes # (A) 0.6 k/uL (0-1.0); Monocytes % (A) 7 %; Neutrophils # (A) 5.2 k/uL (1.3-7.7); Neutrophils % (A) 67 %; Platelet Count 289 k/uL (150-450); RBC 4.61 m/uL (4.30-5.90); RDW 12.9 % (11.5-15.5); WBC 7.8 k/uL (3.8-10.6)
[2020-11-22 10:31] LABS: Calcium 9.9 mg/dL (8.4-10.2); Potassium 3.8 mmol/L (3.5-5.1)
[2020-11-22 10:46] LABS: INR 0.9 (<1.2); Partial Thromboplastin Time 22.3 sec (22.0-30.0); Prothrombin Time 10.2 sec (9.0-12.0)
--- NOTE | 2020-11-22 12:43 | XR ---
EXAMINATION TYPE: XR chest 2V DATE OF EXAM: 11/22/2020 COMPARISON: 06/06/2018 HISTORY: 70-year-old male presurgical clearance TECHNIQUE: Frontal and lateral views FINDINGS: The cardiomediastinal silhouette, aorta, and pulmonary vasculature are within normal limits. Lungs an d pleural spaces are clear. IMPRESSION: No acute cardiopulmonary process.
== END | disposition home or self-care (01) ==
LOC: LABPAT 09:11
PROVIDERS: ATTEND Orthopaedic Surgery Orthopaedic Surgery of the Spine
DX: Z01.812 Encounter for preprocedural laboratory examination (principal); M51.27 Other intervertebral disc displacement, lumbosacral region; I45.10 Unspecified right bundle-branch block; R00.1 Bradycardia, unspecified; R94.31 Abnormal electrocardiogram [ECG] [EKG]
CPT/HCPCS: 36415; 71046; 80048; 81003; 85025; 85610; 85730; 87070; 93005

== ENCOUNTER 2020-12-11 13:20 | Day surgery (SDC) | payer MEDICARE, OTHER ==
[2020-12-03 08:39] VITALS: BMI 24.7
[~2020-12-11 13:20] MED LIST changes: -BACITRACIN 50,000 UNIT, POLYMYXIN B 500,000 UNIT in SODIUM CHLORIDE 0.9% IRRIGATIO 1,00... IRRIGATION ONE; -DEXAMETHASONE SOD PHOSPHATE 10 MG/ML 1 ML VIAL IV ONE; +DEXAMETHASONE SOD PHOSPHATE 4 MG/ML 1 ML VIAL IV ONE; -HYDROmorphone 0.5 MG/0.5 ML SYRINGE IVP PRN; +LACTATED RINGERS 1,000 ML IV SCH; +LIDOCAINE 1% (10MG/ML) FOR IV START INTRADERMA PRN; -LIDOCAINE 1% 20 ML VIAL (10MG/ML) FOR IV START INTRADERMA PRN; -MIDAZOLAM 2 MG/2 ML VIAL IV PRN; +ceFAZolin 1,000 MG in SODIUM CHLORIDE 0.9% IRRIGATIO 1,000 ML IRRIGATION PRN; -ceFAZolin IN SWFI 2 GM/20 ML SYRINGE IVP ONE; -fentaNYL (PF) 50 MCG/ML 2 ML AMP IV PRN
[2020-12-11] MEDS ORDERED: ePHEDrine SULFATE/0.9% NACL/PF 50 MG/5 ML SYRINGE IV ONE (14:41)
[2020-12-11] MEDS ORDERED: SUCCINYLCHOLINE CHLORIDE VIAL 200 MG/10 ML VIAL IV ONE (14:41)
[2020-12-11] MEDS ORDERED: PROPOFOL 10 MG/ML 20 ML VIAL IV ONE (14:41)
[2020-12-11] MEDS ORDERED: LIDOCAINE 1% INJ 10MG/ML (20 ML MDV) ONE (14:41)
[2020-12-11] MEDS ORDERED: MIDAZOLAM 2 MG/2 ML VIAL ONE (14:41)
[2020-12-11] MEDS ORDERED: fentaNYL (PF) 50 MCG/ML 2 ML AMP ONE (14:41)
[2020-12-11] MEDS ORDERED: methylPREDNISolone ACETATE 80 MG/ML 1 ML VIAL INJ ONE (15:22)
[2020-12-11] MEDS ORDERED: GELATIN SPONGE,ABSORB (LARGE) 1 EACH SPONGE TOPICAL ONE (15:22)
[2020-12-11] MEDS ORDERED: THROMBIN (BOVINE) 5,000 UNIT VIAL TOPICAL ONE (15:36)
[2020-12-11] MEDS ORDERED: LIDOCAINE 1%-EPI 1:100,000 20 ML VIAL SQ ONE (15:37)
[2020-12-11] MEDS ORDERED: BENZOCAINE/MENTHOL LOZENG 1 EACH LOZENGE MUCOUS MEM PRN (16:11)
[2020-12-11] MEDS ORDERED: HYDROmorphone 0.5 MG/0.5 ML SYRINGE IVP PRN (16:11)
[2020-12-11] MEDS ORDERED: HYDROcodone/APAP 5-325MG 1 EACH TAB PO PRN ×2 (16:11)
[2020-12-11] MEDS ORDERED: HYDROmorphone 1 MG/ML 1 ML SYRINGE IVP PRN (16:11)
[2020-12-11] MEDS ORDERED: Acetaminophen-Codeine 300-30mg TAB PO PRN ×2 (16:12→17:09)
--- NOTE | 2020-12-11 16:12 | FL ---
EXAMINATION TYPE: FL guidance operating room, XR lumbar spine 1V DATE OF EXAM: 12/11/2020 CLINICAL HISTORY: Low back pain. TECHNIQUE: Fluoroscopy. Intraoperative single view lumbar spine. COMPARISON: CT lumbar spine October 20, 2020. FINDINGS: Fluoroscopic guidance was provided during lumbar laminectomy procedure performed by Dr. Henri mcgraw. A total of 1 second of fluoroscopic time was utilized during the procedure and single spot intr aoperative image is acquired. Single intraoperative image acquired shows metallic pointer for localization purposes at the superior L4 level. IMPRESSION: As Above.
[2020-12-11] MEDS ORDERED: SODIUM CHLORIDE 0.9% 1,000 ML IV SCH (16:15)
--- NOTE | 2020-12-11 16:19 | P.OP ---
Date of Procedure: 12/11/20 Preoperative Diagnosis: Herniated nucleus pulposis L3 4, left lower extremity radiculopathy, left lower extremity weakness, degenerative disc disease Postoperative Diagnosis: Same Anesthesia: GETA Pathology: none sent Condition: stable Disposition: PACU Description of Procedure: BRIEF OPERATIVE NOTE Preoperative Diagnosis:Herniated nucleus pulposis L3 4, left lower extremity radiculopathy, left lower extremity weakness, degenerative disc disease Postoperative Diagnosis:Herniated nucleus pulposis L3 4, left lower extremity radiculopathy, left lower extremity weakness, degenerative disc disease Procedure: Laminectomy and decompression L3 4 Discectomy for decompression L3 4 Surgeon: Dr. Squires Fountain Supervisor: Trenton HESS who is present throughout the entire the case persistence during positioning, dissection, exposure, visualization, and all crucial elements of the case as well as closure. Anesthesia: General anesthesia per Dr. Gold Estimated blood loss: Approximately 50 mL Complications: None apparent Components implanted: None Disposition: To recovery room in good stable condition. OPERATIVE INDICATIONS The patient has been having issues in their lower back and lower extremities. He has been having severe left lower extremity radicular symptoms or an L4 distribution. His having worsening for him despite inserted treatment. He is found have a disc herniation evidence of stenosis at L3 4 space which correlate well with his upper extremity symptoms. He had been through treatment in the past 4 L4 5 on the right side and then had gone well for him. The patient has been through conservative treatment. We discussed various treatment options including surgery, and the patient wishes to proceed with surgery We discussed the risk, patient's alternatives and benefits of surgery including but not limited to, risk of bleeding risk of infection, risk of need for further surgery, risk of decreased, loss of motion, loss of function, nerve damage, paralysis, heart attack, blindness and . OPERATIVE SUMMARY After discussing all the risks, patient alternatives and benefits at length, the patient elected to proceed with surgical intervention, signed informed consent, and presented for their procedure. The patient was seen and examined in the preoperative holding area and the surgical site was marked. The patient was given antibiotics and brought to the operating room. The patient was sedated and intubated by anesthesia in standard fashion. The patient was positioned on to the operating room table in a prone position on the appropriate frame which was well-padded and well molded. We were careful to pad any bony prominences and pressure points. We were careful to maintain the patient's cervical spine and good neutral alignment and position throughout. The patient was prepped and draped in a normal standard fashion. An appropriate timeout and keystone protocol performed. We were able to proceed with the surgery. Fluoroscopy was utilized to establish the appropriate level. The local wound area was infiltrated with local anesthetic. An incision was made at the midline longitudinally over the appropriate levels at L4 5. Dissection was taken down subcutaneously to the level of the fascia which was split midline. Dissection was taken over the lamina. Intraoperative fluoroscopy was taken which showed a marker at the appropriate level. With the appropriate level positively confirmed, we were able to proceed with laminectomy. The wound was copiously irrigated and suctioned dry as had been done periodically throughout the case. I performed a laminectomy with a combination of curettes and a high-speed bur and Kerrison rongeurs. A small medial facetectomy was performed again further access. A partial foraminotomy was also performed. Portions of the ligamentum flavum were taken down to expose the dura and traversing nerve root. I was able to mobilize the traversing nerve root and gain access to the disc space. Note was made of obvious compression from the disc. There was a conglomeration of veins right at the space overlying the disc itself which is causing some mass effect on the traversing nerve root. I was able cauterize these with bipolar cauterization. Protecting the soft tissue structures, a small annulotomy was established. I was able to perform discectomy and remove any extruded disc fragments and any loose fragments from within the disc itself. There is some disc desiccation noted. I tried to preserve the disc annulus that appeared stable. There were no further extruded fragments noted. There is no evidence of dural tear or leak. Good hemostasis maintained. The wound was copiously irrigated and suctioned dry. Good decompression and discectomy was noted. We were able to proceed with closure. The fascia was closed for a watertight closure. The subcuticular tissue was closed with absorbable suture. The wound was cleaned and dried and dressed with the appropriate dressing. The drapes were broken down. The patient was gently rolled back onto their hospital bed being careful to maintain their cervical spine and good neutral alignment and position. They were woken up by anesthesia, extubated, and brought to the recovery room in good stable condition. The patient will be admitted to the hospital for observation and for appropriate postoperative care, medical management and monitoring. We will continue to follow them closely about the postoperative course.
[2020-12-11 16:38] VITALS: TEMP 96.3
[2020-12-11 17:09] VITALS: RESP 18
[2020-12-11 17:33] VITALS: BP 130/79; PULSE 70
[2020-12-11] MEDS ORDERED: ATORVASTATIN 40 MG TAB PO SCH (21:00)
[2020-12-11] MEDS ORDERED: METOPROLOL TARTRATE 25 MG TAB PO SCH (21:00)
[2020-12-12] MEDS ORDERED: PANTOPRAZOLE 40 MG TABLET PO SCH (07:30)
[2020-12-12] MEDS ORDERED: SENNOSIDES-DOCUSATE SODIUM 1 EACH TAB PO SCH (09:00)
[2020-12-12] MEDS ORDERED: ASPIRIN 81 MG PO SCH (09:00)
[2020-12-12] MEDS ORDERED: TRIAMTERENE-HCTZ 37.5-25MG 1 EACH TAB PO SCH (09:00)
[2020-12-12] MEDS ORDERED: ESCITALOPRAM 10 MG TAB PO SCH (09:00)
[2020-12-12] MEDS ORDERED: amLODIPine 10 MG TAB PO SCH (09:00)
[2020-12-12] MEDS ORDERED: cloNIDine HCL 0.1 MG TAB PO SCH (09:00)
[2020-12-12] MEDS ORDERED: LOSARTAN 50 MG TAB PO SCH (09:00)
== END 2020-12-11 17:50 | disposition home or self-care (01) ==
LOC: OR 13:20
PROVIDERS: ATTEND Orthopaedic Surgery Orthopaedic Surgery of the Spine
DX: M51.16 Intervertebral disc disorders with radiculopathy, lumbar region (principal); M48.061 Spinal stenosis, lumbar region without neurogenic claudication; M47.816 Spondylosis without myelopathy or radiculopathy, lumbar region; I10 Essential (primary) hypertension; E78.2 Mixed hyperlipidemia; Z20.822 Contact with and (suspected) exposure to COVID-19; Z79.82 Long term (current) use of aspirin; Z79.899 Other long term (current) drug therapy; Z87.891 Personal history of nicotine dependence
CPT/HCPCS: 63030; 87635; 72020; J2250; J0330; J1040; J0690; J2405; J2001; J3010; J2704; 86850; 86900; 86901

== ENCOUNTER → 2021-07-30 | Outpatient (CLI) | payer MEDICARE, OTHER ==
[2021-07-30 16:24] LABS: African American GFR (CKD) 72.3 (60.0-200.0); Albumin 4.1 g/dL (3.8-4.9); Albumin/Globulin Ratio 1.8 (1.60-3.17); Anion Gap 11.5 mmol/L (10.00-18.00); BUN/Creat Ratio 20.94 Ratio (12.00-20.00); Blood Urea Nitrogen 24.5 mg/dL (9.0-27.0); Calcium 9.6 mg/dL (8.7-10.3); Carbon Dioxide 23.5 mmol/L (20.0-27.5); Globulin 2.3 g/dL (1.6-3.3); Non-African American GFR(CKD) 62.4 (60.0-200.0); Potassium 4.7 mmol/L (3.5-5.5); Total Bilirubin 0.5 mg/dL (0.30-1.20); Total Protein 6.4 g/dL (6.2-8.2)
[2021-07-30 18:06] LABS: Eosinophils # (A) 0.72 X 10*3/uL (0.04-0.35); Eosinophils % (A) 7.3 %; HCT 44.4 % (39.6-50.0); HGB 14.6 g/dL (13.0-17.0); Lymphocytes # (A) 1.37 X 10*3/uL (0.90-5.00); Lymphocytes % (A) 13.9 %; MCH 31.7 pg (27.0-32.0); MCHC 32.9 g/dL (32.0-37.0); MCV 96.3 fL (80.0-97.0); Mean Platelet Volume 9.9 fL (9.5-12.2); Monocytes # (A) 1.05 X 10*3/uL (0.20-1.00); Monocytes % (A) 10.7 %; Neutrophils # (A) 6.47 X 10*3/uL (1.80-7.70); Neutrophils % (A) 65.8 %; Platelet Count 314 X 10*3/uL (140-440); RBC 4.61 X 10*6/uL (4.40-5.60); RDW 13.2 % (11.5-14.5); WBC 9.84 X 10*3/uL (4.50-10.00)
== END | disposition home or self-care (01) ==
LOC: LABWHC1 09:37
PROVIDERS: ATTEND Physician Assistant
DX: L25.9 Unspecified contact dermatitis, unspecified cause (principal)
CPT/HCPCS: 36415; 80053; 82955; 85025

== ENCOUNTER → 2021-09-04 | Outpatient (CLI) | payer MEDICARE, OTHER ==
[2021-09-04 19:17] LABS: Basophils # (A) 0.09 X 10*3/uL (0.00-0.10); Basophils % (A) 0.9 %; Eosinophils # (A) 0.02 X 10*3/uL (0.04-0.35); Eosinophils % (A) 0.2 %; HCT 40.7 % (39.6-50.0); HGB 12.9 g/dL (13.0-17.0); Lymphocytes # (A) 1.74 X 10*3/uL (0.90-5.00); Lymphocytes % (A) 17.6 %; MCH 31.2 pg (27.0-32.0); MCHC 31.7 g/dL (32.0-37.0); MCV 98.3 fL (80.0-97.0); Monocytes # (A) 1.13 X 10*3/uL (0.20-1.00); Monocytes % (A) 11.5 %; Neutrophils # (A) 6.82 X 10*3/uL (1.80-7.70); Neutrophils % (A) 69.2 %; Platelet Count 268 X 10*3/uL (140-440); RBC 4.14 X 10*6/uL (4.40-5.60); RDW 13.1 % (11.5-14.5); WBC 9.86 X 10*3/uL (4.50-10.00)
[2021-09-04 19:22] LABS: African American GFR (CKD) 64.8 (60.0-200.0); Albumin 4.1 g/dL (3.8-4.9); Albumin/Globulin Ratio 2.09 (1.60-3.17); Anion Gap 11.8 mmol/L (10.00-18.00); BUN/Creat Ratio 12.03 Ratio (12.00-20.00); Blood Urea Nitrogen 15.4 mg/dL (9.0-27.0); Calcium 9.5 mg/dL (8.7-10.3); Carbon Dioxide 23.5 mmol/L (20.0-27.5); Non-African American GFR(CKD) 55.9 (60.0-200.0); Potassium 4.1 mmol/L (3.5-5.5); Total Bilirubin 0.7 mg/dL (0.30-1.20); Total Protein 6.1 g/dL (6.2-8.2)
== END | disposition home or self-care (01) ==
LOC: LABWHC1 11:59
PROVIDERS: ATTEND Physician Assistant
DX: L25.9 Unspecified contact dermatitis, unspecified cause (principal)
CPT/HCPCS: 36415; 80053; 85025

== ENCOUNTER → 2021-09-26 | Outpatient (CLI) | payer MEDICARE, OTHER ==
[2021-09-26 15:52] LABS: Basophils # (A) 0.11 X 10*3/uL (0.00-0.10); Basophils % (A) 1.4 %; Eosinophils # (A) 1.07 X 10*3/uL (0.04-0.35); Eosinophils % (A) 13.3 %; HCT 40.8 % (39.6-50.0); HGB 13.3 g/dL (13.0-17.0); Lymphocytes % (A) 16.2 %; MCH 32.1 pg (27.0-32.0); MCHC 32.6 g/dL (32.0-37.0); MCV 98.6 fL (80.0-97.0); Mean Platelet Volume 9.7 fL (9.5-12.2); Monocytes # (A) 0.79 X 10*3/uL (0.20-1.00); Monocytes % (A) 9.8 %; Neutrophils # (A) 4.72 X 10*3/uL (1.80-7.70); Neutrophils % (A) 58.8 %; Platelet Count 289 X 10*3/uL (140-440); RBC 4.14 X 10*6/uL (4.40-5.60); RDW 13.2 % (11.5-14.5); WBC 8.03 X 10*3/uL (4.50-10.00)
[2021-09-26 15:58] LABS: African American GFR (CKD) 77.9 (60.0-200.0); Albumin 4.1 g/dL (3.8-4.9); Albumin/Globulin Ratio 1.86 (1.60-3.17); Anion Gap 11.6 mmol/L (10.00-18.00); BUN/Creat Ratio 12.36 Ratio (12.00-20.00); Blood Urea Nitrogen 13.6 mg/dL (9.0-27.0); Calcium 9.6 mg/dL (8.7-10.3); Carbon Dioxide 22.4 mmol/L (20.0-27.5); Globulin 2.2 g/dL (1.6-3.3); Non-African American GFR(CKD) 67.2 (60.0-200.0); Potassium 4.4 mmol/L (3.5-5.5); Total Bilirubin 0.3 mg/dL (0.30-1.20); Total Protein 6.3 g/dL (6.2-8.2)
== END | disposition home or self-care (01) ==
LOC: LABWHC1 10:12
PROVIDERS: ATTEND Physician Assistant
DX: L25.9 Unspecified contact dermatitis, unspecified cause (principal)
CPT/HCPCS: 36415; 80053; 85025

== ENCOUNTER → 2022-06-26 | Outpatient (CLI) | payer MEDICARE, OTHER ==
--- NOTE | 2022-06-26 09:10 | US ---
EXAMINATION TYPE: US duplex aorta DATE OF EXAM: 06/26/2022 COMPARISON: CT CLINICAL HISTORY: Z13.6 AAA. Screening for AAA TECHNIQUE: Multiple sonographic images of the abdominal aorta are obtained. FINDINGS: EXAM MEASUREMENTS: Abdominal Aorta: Proximal: Unable to visualize due to overlying bowel gas Mid: 2.4 x 2.2 cm Distal: 2.1 x 2.1 cm Bifurcation: Unable to visualize bifurcation due to overlying bowel gas PERSONAL INJURY SPECIALIST NOTES: No evidence of AAA, heavily calcified aortic coffman causing shadowing IMPRESSION: No evidence of AAA
== END | disposition home or self-care (01) ==
LOC: RADUSWWP 08:10
PROVIDERS: ATTEND Internal Medicine
DX: Z13.6 Encounter for screening for cardiovascular disorders (principal)
CPT/HCPCS: 93979

== ENCOUNTER → 2023-08-11 | Outpatient (CLI) | payer MEDICARE, OTHER ==
--- NOTE | 2023-08-12 15:31 | US ---
EXAMINATION TYPE: US kidneys/renal and bladder DATE OF EXAM: 08/11/2023 COMPARISON: NONE CLINICAL INDICATION: Male, 73 years old with history of N18.31 CHRONIC KIDNEY DISEASE, STAGE 3A; Abno rmal labs. No pain. EXAM MEASUREMENTS: Right Kidney: 10.2 x 5.6 x 5.4 cm Left Kidney: 10.9 x 5.0 x 5.2 cm Right Kidney: No hydronephrosis. There is a too small to characterize hypoechoic midpole cortical les ion measuring 8 mm. Possible tiny cyst. This is a follow-up. Left Kidney: Prominent cortical lobulations. No hydronephrosis. Bladder: Partially distended, no gross abnormality Bilateral Jets seen IMPRESSION: 1. No hydronephrosis. 2. Indeterminate 8 mm mid pole cortical lesion right kidney is too small for accurate characterizatio n. Possible tiny cyst. Reassess at a 6 month follow-up ultrasound.
== END | disposition home or self-care (01) ==
LOC: RADUSWWP 15:19
PROVIDERS: ATTEND Internal Medicine
DX: N18.31 Chronic kidney disease, stage 3a (principal)
CPT/HCPCS: 76770

== ENCOUNTER → 2023-08-31 | Outpatient (CLI) | payer MEDICARE, OTHER ==
--- NOTE | 2023-09-01 22:50 | MR ---
EXAMINATION TYPE: MR kidney wo/w con DATE OF EXAM: 08/31/2023 8:10 AM CLINICAL INDICATION:Male, 73 years old with history of N28.9 renal lesion; PHH, Renal lesion, Abnorma l US COMPARISON: Ultrasound 08/11/2023 TECHNIQUE: Multiplanar multi-sequence imaging was performed without contrast. Post contrast imaging was performed. Post IV contrast subtraction images were also submitted for review. IV Contrast: 8.5 cc Gadavist FINDINGS: LOWER CHEST: No gross irregularity. ABDOMEN Liver: No evidence for cirrhosis. Mild signal dropout on chemical shift of phase imaging. Gallbladder and Bile ducts: No evidence for ductal dilation, or biliary stricture or evidence of chol edocholithiasis. The gallbladder is within normal limits. Pancreas: No ductal dilation. No evidence for solid mass. Spleen: Normal for size. Adrenal glands: Unremarkable. Kidneys: Intrinsic high T1 signal lesion in the cortex measuring up to 5 mm. Additional high T2 low T 1 signal lesion within the fat-saturated sequences measuring up to 6 mm. In the cortex of the kidney felt to correspond with findings on ultrasound. Motion limits evaluation slightly. No evidence for ob structive uropathy. No suspicious renal masses. Stomach and Bowel: No evidence for bowel wall thickening or evidence for obstruction.. Peritoneum: No evidence of pneumoperitoneum or free fluid. Vasculature: No aortic aneurysm. Musculoskeletal: The osseous structures appear intact. Lymph Nodes: No gross evidence for lymphadenopathy. Abdominal wall: Unremarkable. IMPRESSION: 1. No suspicious renal lesions. Respiratory motion limits evaluation slightly, there are right corti sade cyst without enhancement. One of these has intrinsic high T1 signal likely representing proteinac eous/hemorrhagic contents. 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 2. Hepatic steatosis.
== END | disposition home or self-care (01) ==
LOC: RADMRIMAIN 07:08
PROVIDERS: ATTEND Internal Medicine
DX: K76.0 Fatty (change of) liver, not elsewhere classified (principal); N28.9 Disorder of kidney and ureter, unspecified
CPT/HCPCS: 74183; A9585